=== PATIENT | female | born 1985 | race Caucasian/White ===

== ENCOUNTER 2017-11-21 01:19 | Observation (INO) | payer OTHER ==
[2017-11-21] MEDS ORDERED: Morphine 2 MG/ML Syringe SUBCUT ONE (01:40)
[2017-11-21] MEDS ORDERED: Sodium Chloride 0.9% 10 ML Syringe FLUSH PRN (01:57)
[2017-11-21] MEDS: Morphine 2 MG/ML Syringe IVPUSH ONE ×2 (02:10→02:54)
[2017-11-21] MEDS ORDERED: Ondansetron 4 MG/2 ML SDV IVPUSH ONE (02:15)
[2017-11-21] MEDS ORDERED: Ketorolac 30 MG/ML SDV IVPUSH ONE (03:01)
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
[2017-11-21] MEDS ORDERED: Ketorolac 60 MG/2 ML SDV IVPUSH PRN (03:32)
[2017-11-21] MEDS ORDERED: Sodium Chloride 0.9% 1,000 ML IV SCH (04:00)
[2017-11-21] MEDS: Morphine 2 MG/ML Syringe IVPUSH PRN ×3 (05:17→12:33)
[2017-11-21] MEDS: Ondansetron 4 MG/2 ML SDV IVPUSH PRN ×2 (06:08→12:33)
[2017-11-21] MEDS ORDERED: diphenhydrAMINE 50 MG/ML SDV ONE (09:24)
[2017-11-21] MEDS ORDERED: diphenhydrAMINE 50 MG/ML SDV IVPUSH PRN (09:58)
--- NOTE | 2017-11-21 10:07 | CT ---
UNENHANCED CHEST CT, 11/21/17 Multislice acquisition through the chest without IV contrast was performed. No priors. The lungs are clear. No areas of consolidation. No pneumothorax. No pleural effusions . The heart size is normal. No pericardial effusion. No hilar or mediastinal adenopathy. There is gas within the thoracic esophagus most likely related to GE reflux. There is a small hiatal hernia. The exam is otherwise negative. No displaced fractures. \ UNENHANCED ABDOMEN AND PELVIC CT, 11/21/17 Multislice acquisition through the abdomen and pelvis without IV or oral contrast was performed. No priors. The lung bases are clear. There is a small hiatal hernia. The unenhanced liver appears normal. The gallbladder appears normal. The spleen appears normal. The pancreas appears normal. The right and left adrenals appear normal. The right and left kidneys appear normal. No nephrocalcinosis or nephrolithiasis. No hydronephrosis or hydroureter. The bladder is fluid-filled. It appears normal. There is a 3.5 cm round fluid density lesion in the region of the right ovary and adnexa most likely representing a right ovarian cyst. Followup ultrasound is recommended to confirm resolution. The appendix is not clearly seen. No evidence of appendicitis. There are multiple fluid-filled loops of small bowel within the mid and upper abdomen. They are not distended. They do contain scattered air-fluid levels. Enteritis should be considered. No free air. No free fluid. No adenopathy. No dilated loops of bowel. No aortic aneurysm. There is an umbilical hernia containing fat. IMPRESSION: 1) 3.5 cm fluid density lesion in right ovary/adnexa consistent with a right ovarian cyst. Followup ultrasound is recommended to confirm resolution. 2) Multiple fluid-filled loops of small bowel within the mid and upper abdomen. They are not distended. They do contain air-fluid levels. Enteritis should be considered. Followup imaging is recommended if clinically indicated. 3) Other findings as discussed above. [id number] [facility]
--- NOTE | 2017-11-28 14:55 | PCM.DCSUM1 ---
Discharge Summary - Discharge Data Discharge Date: 11/21/17 Discharge Disposition: DC/Tfer to Acute Hospital 02 Condition: Fair - Discharge Diagnosis/Problem(s) (1) Abdominal pain SNOMED Code(s): 01033206 ICD Code: R10.9 - UNSPECIFIED ABDOMINAL PAIN Status: Acute Qualifiers: Abdominal location: left lower quadrant Qualified Code(s): R10.32 - Left lower quadrant pain (2) Pain SNOMED Code(s): 73988262 ICD Code: R52 - PAIN, UNSPECIFIED Status: Acute - Patient Instructions Diet: NPO - Discharge Plan Home Medications: Home Meds ALPRAZolam [Alprazolam] 1 mg PO BEDTIME 02/28/15 [History] Citalopram Hydrobromide [Citalopram HBr] 40 mg PO BEDTIME 02/28/15 [History] Cholecalciferol (Vitamin D3) [Vitamin D3] 2,000 unit PO DAILY 11/21/17 [History] Multivitamin [Multivitamins] 1 each PO DAILY 11/21/17 [History] Rizatriptan Benzoate [Rizatriptan] 10 mg PO ASDIRECTED PRN 11/21/17 [History] Forms: ED Department Discharge - Discharge Summary/Plan Comment DC Time >30 min.: Yes Discharge Summary/Plan Comment: Patient transferred for further management possibly surgical as needed due to acute abdomen. - General Info Date of Service: 11/21/17 Functional Status: Denies: Pain Controlled - Review of Systems General: Reports: No Symptoms HEENT: Reports: No Symptoms Pulmonary: Reports: No Symptoms Cardiovascular: Reports: No Symptoms Gastrointestinal: Reports: Abdominal Pain Genitourinary: Reports: No Symptoms Musculoskeletal: Reports: No Symptoms - Patient Data Vitals - Most Recent: Last Vital Signs Temp 37.2 C 11/21/17 11:49 Pulse 78 11/21/17 11:49 Resp 16 11/21/17 11:49 BP 102/60 11/21/17 11:49 Pulse Ox 97 11/21/17 11:49 Weight - Most Recent: 71.668 kg Med Orders - Current: Current Medications Discontinued Medications Diazepam (Valium) 1 mg IVPUSH Q2H PRN PRN Reason: Abdominal Pain Last Admin: 11/21/17 11:55 Dose: 1 mg Diazepam (Valium) Confirm Administered Dose 10 mg .ROUTE .STK-MED ONE Stop: 11/21/17 03:58 Last Admin: 11/21/17 04:01 Dose: Not Given Diphenhydramine HCl (Benadryl) Confirm Administered Dose 50 mg .ROUTE .STK-MED ONE Stop: 11/21/17 09:25 Last Admin: 11/21/17 09:29 Dose: 12.5 mg Diphenhydramine HCl (Benadryl) 12.5 mg IVPUSH Q2H PRN PRN Reason: Nausea Last Admin: 11/21/17 11:50 Dose: 12.5 mg Sodium Chloride (Normal Saline) 1,000 mls @ 75 mls/hr IV ASDIRECTED MARIELENA Last Admin: 11/21/17 03:52 Dose: 75 mls/hr Ketorolac Tromethamine (Toradol) 30 mg IVPUSH ONETIME ONE Stop: 11/21/17 03:02 Last Admin: 11/21/17 03:08 Dose: 30 mg Ketorolac Tromethamine (Toradol) 15 mg IVPUSH Q6H PRN PRN Reason: Pain Stop: 11/26/17 03:33 Last Admin: 11/21/17 09:16 Dose: 15 mg Morphine Sulfate (Morphine) 2 mg SUBCUT ONETIME ONE Stop: 11/21/17 01:41 Last Admin: 11/21/17 01:43 Dose: 2 mg Morphine Sulfate (Morphine) 2 mg IVPUSH ONETIME ONE Stop: 11/21/17 02:07 Last Admin: 11/21/17 02:54 Dose: 4 mg Morphine Sulfate (Morphine) 4 mg IVPUSH Q1H PRN PRN Reason: Pain Last Admin: 11/21/17 12:33 Dose: 4 mg Ondansetron HCl (Zofran) 4 mg IVPUSH ONETIME ONE Stop: 11/21/17 02:16 Last Admin: 11/21/17 02:25 Dose: 4 mg Ondansetron HCl (Zofran) 4 mg IVPUSH Q4H PRN PRN Reason: Nausea/Vomiting Last Admin: 11/21/17 12:33 Dose: 4 mg Sodium Chloride (Saline Flush) 10 ml FLUSH ASDIRECTED PRN PRN Reason: Keep Vein Open Last Admin: 11/21/17 02:05 Dose: 10 ml - Exam General: Reports: Alert, Oriented, Severe Distress HEENT: Reports: Pupils Equal, Pupils Reactive, EOMI Neck: Reports: Supple Lungs: Reports: Clear to Auscultation, Normal Respiratory Effort Cardiovascular: Reports: Regular Rhythm, Tachycardia GI/Abdominal Exam: Guarding, Tender *Q Meaningful Use (DIS) - VTE *Q VTE Criteria *Q: - Stroke *Q Stroke Criteria *Q: - AMI *Q AMI Criteria *Q:
== END 2017-11-21 12:45 ==
LOC: LB.ED 01:19 → LB.MS 03:19 → UNDOADMOB 03:48 → LB.MS 03:48
PROVIDERS: ADMIT Family Medicine; ATTEND Family Medicine
DX: R10.32 Left lower quadrant pain (principal); Z79.899 Other long term (current) drug therapy; Z88.8 Allergy status to other drugs, medicaments and biological substances
CPT/HCPCS: 36415; 71250; 74176; 80053; 83605; 84484; 85025; 93005; 96374; 96375; 96376; 99285; G0378; J1200; J1885; J2270; J2405; J3360; J7040; J7050